=== PATIENT | male | born 1985 | race Caucasian/White ===

== ENCOUNTER 2019-03-17 17:54 | Emergency (ER) | payer OTHER ==
[~2019-03-17] VITALS: Ht 185.4 cm; Wt 64.9 kg
--- NOTE | 2019-03-17 18:25 | NUR ---
PATIENT CAME IN TO THE ER C/O EPIGASTRIC PAIN STARTED 30 MINS AGO. 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 ON ROM AIR, BREATHING EVENLY AND UNLABORED. CONNECTED TO THE MONITOR ACCORDINGLY.
--- NOTE | 2019-03-17 18:26 | NUR ---
at bedside for eval.
[2019-03-17] MEDS ORDERED: FAMOTIDINE/PF INJ 20 MG/2 ML VIAL IV ONE ×2 (18:30→18:39)
[2019-03-17] MEDS ORDERED: MAG HYDROX/AL HYDROX/SIMETH 30 ML UDC PO ONE (18:30)
[2019-03-17] MEDS ORDERED: IV NS 0.9% 1,000 ML BAG IV ONE ×2 (18:30→20:00)
[2019-03-17] MEDS ORDERED: ONDANSETRON HCL/PF 4 MG/2 ML VIAL IVP ONE ×2 (18:30→19:30)
[2019-03-17] MEDS ORDERED: LIDOCAINE VISCOUS 2% UD 15 ML UDC MM ONE (18:30)
[2019-03-17] MEDS ORDERED: ONDANSETRON HCL/PF 4 MG/2 ML VIAL ONE ×2 (18:39→19:13)
[2019-03-17] MEDS ORDERED: LIDOCAINE VISCOUS 2% UD 15 ML UDC ONE (18:39)
[2019-03-17] MEDS ORDERED: MAG HYDROX/AL HYDROX/SIMETH 30 ML UDC ONE (18:39)
[2019-03-17 18:51] LABS: BASOPHILS % (AUTO) 0.4 % (0.0-2.0); EOSINOPHILS % (AUTO) 0.7 % (0.0-6.0); HEMATOCRIT 46 % (39-51); HEMOGLOBIN 15.5 g/dL (13.5-17.5); LYMPHOCYTES # (AUTO) 1.7 /CMM (0.8-4.8); LYMPHOCYTES % (AUTO) 26.7 % (20.0-44.0); MEAN CORPUSCULAR HGB CONC 34 g/dl (31.0-36.0); MEAN CORPUSCULAR VOLUME 90 fL (80-96); MONOCYTES # (AUTO) 0.5 /CMM (0.1-1.30); MONOCYTES % (AUTO) 7.4 % (2.0-12.0); NEUTROPHILS # (AUTO) 4.2 /CMM (1.8-8.9); NEUTROPHILS % (AUTO) 64.8 % (43.0-81.0); PLATELET COUNT (AUTO) 262 /CMM (150-450); RED BLOOD CELL COUNT(AUTO) 5.15 MIL/uL (4.5-6.0); WHITE BLOOD COUNT (AUTO) 6.5 K/uL (4.3-11.0)
[2019-03-17 18:59] LABS: CALCIUM, SERUM 9.4 mg/dL (8.5-10.1); CARBON DIOXIDE 26 mmol/L (21-32); CHLORIDE 106 mmol/L (98-107); GLUCOSE 117 mg/dL (74-106); POTASSIUM 3.5 mmol/L (3.5-5.1); SODIUM SERUM 142 mmol/L (136-145); UREA NITROGEN, BLOOD 18 mg/dL (7-18)
[2019-03-17 19:04] LABS: ALANINE AMINOTRANSFERASE 29 U/L (12-78); ALBUMIN 4.2 g/dL (3.4-5.0); ALKALINE PHOSPHATASE 54 U/L (46-116); ASPARTATE AMINOTRANSFERASE 19 U/L (15-37); BILIRUBIN,DIRECT 0.1 mg/dL (0.0-0.2); BILIRUBIN,TOTAL 0.5 mg/dL (0.2-1.0); LIPASE 173 U/L (73-393); TOTAL PROTEIN, SERUM 7.7 g/dL (6.4-8.2)
--- NOTE | 2019-03-17 19:12 | NUR ---
report given to amy lorenzo jina.
[2019-03-17] MEDS ORDERED: MORPHINE SULFATE INJ 4 MG/ML DISP.SYRIN ONE (19:13)
[2019-03-17] MEDS ORDERED: MORPHINE SULFATE INJ 2 MG/ML DISP.SYRIN IV ONE (19:30)
[2019-03-17] MEDS ORDERED: LORAZEPAM 0.5 MG TABLET ONE (19:51)
[2019-03-17] MEDS ORDERED: LORAZEPAM 1 MG TABLET PO ONE (20:00)
--- NOTE | 2019-03-17 21:24 | NUR ---
PT MEDICALLY CLEARED TO BE D/C'D HOME. PT DENIED ANY PAIN OR DICOMFORT AT THIS TIME. - SOB. VSS.IV removed. Catheter intact and site benign. Pressure and 4x4 applied to site. No bleeding noted.Patient discharged to home in stable condition. Written and verbal after care instructions given. Patient verbalizes understanding of instruction.
[2019-03-17 21:25] VITALS: BP 128/71
== END 2019-03-17 21:26 | disposition home or self-care (01) ==
LOC: ER 18:00
DX: R07.89 Other chest pain (principal); F17.210 Nicotine dependence, cigarettes, uncomplicated
CPT/HCPCS: 36415; 71045; 80048; 80076; 83690; 84484; 85025; 85378; 85730; 93005 ×2; 96374; 96375; 96376; 99284; 99406; J2270; J2405 ×2; J3490; J7030 ×2

== ENCOUNTER 2022-10-03 16:06 | Emergency (ER) | payer OTHER ==
[~2022-10-03] VITALS: Ht 185.4 cm; Wt 64.9 kg
--- NOTE | 2022-10-03 16:10 | NUR ---
BIBS FOR ABDOMINAL PAIN. A/O X 3, ABLE TO MAKE NEEDS KNOWN, TOLERATING WELL ON ROOM AIR. WILL CONTINUE TO MONITOR.
[2022-10-03 16:55] LABS: BASOPHILS % (AUTO) 0.2 % (0.0-2.0); EOSINOPHILS % (AUTO) 2.1 % (0.0-6.0); HEMATOCRIT 45 % (39-51); HEMOGLOBIN 15.2 g/dL (13.5-17.5); LYMPHOCYTES # (AUTO) 2.1 K/uL (0.8-4.8); LYMPHOCYTES % (AUTO) 21.8 % (20.0-44.0); MEAN CORPUSCULAR HGB CONC 34 g/dl (31.0-36.0); MEAN CORPUSCULAR VOLUME 89 fL (80-96); MONOCYTES # (AUTO) 0.8 K/uL (0.1-1.30); MONOCYTES % (AUTO) 8.3 % (2.0-12.0); NEUTROPHILS # (AUTO) 6.6 K/uL (1.8-8.9); NEUTROPHILS % (AUTO) 67.6 % (43.0-81.0); PLATELET COUNT (AUTO) 175 K/uL (150-450); RED BLOOD CELL COUNT(AUTO) 5.07 MIL/uL (4.5-6.0); WHITE BLOOD COUNT (AUTO) 9.8 K/uL (4.3-11.0)
[2022-10-03] MEDS ORDERED: IV NS 0.9% 1,000 ML BAG IV ONE (17:00)
[2022-10-03] MEDS ORDERED: ONDANSETRON HCL/PF 4 MG/2 ML VIAL IVP ONE (17:00)
[2022-10-03] MEDS ORDERED: KETOROLAC TROMETHAMINE INJ 30 MG/ML VIAL IV ONE (17:00)
[2022-10-03] MEDS ORDERED: PANTOPRAZOLE 40 MG VIAL IV ONE (17:00)
--- NOTE | 2022-10-03 17:00 | NUR ---
BLOOD SAMPLES OBTAINED
[2022-10-03] MEDS ORDERED: KETOROLAC TROMETHAMINE 15 MG/ML VIAL ONE (17:04)
[2022-10-03] MEDS ORDERED: PANTOPRAZOLE 40 MG VIAL ONE (17:05)
[2022-10-03] MEDS ORDERED: ONDANSETRON HCL/PF 4 MG/2 ML VIAL ONE (17:05)
[2022-10-03 17:07] LABS: CALCIUM, SERUM 9.2 mg/dL (8.5-10.1); POTASSIUM 4.1 mmol/L (3.5-5.1)
[2022-10-03 17:14] LABS: ALBUMIN 3.6 g/dL (3.4-5.0); BILIRUBIN,DIRECT 0.2 mg/dL (0.0-0.2); BILIRUBIN,TOTAL 0.8 mg/dL (0.2-1.0); TOTAL PROTEIN, SERUM 7.6 g/dL (6.4-8.2)
[2022-10-03] MEDS ORDERED: IBUP-1953 PO ×2 (18:48→19:52)
[2022-10-03] MEDS ORDERED: AMOX-430 PO ×2 (18:48→19:52)
[2022-10-03 20:31] VITALS: BP 115/63; TEMP 98.1; O2SAT 100
--- NOTE | 2022-10-03 20:31 | NUR ---
Patient discharged to home in stable condition. Written and verbal after care instructions given. Patient verbalizes understanding of instruction.
== END 2022-10-03 20:32 | disposition home or self-care (01) ==
LOC: ER 16:10
DX: K52.9 Noninfective gastroenteritis and colitis, unspecified (principal); F17.200 Nicotine dependence, unspecified, uncomplicated
CPT/HCPCS: 99285; 74176; 96374; 96361; 96375; 85025; 80048; 83690; 80076; 36415; J2405; J7030; C9113; J1885